=== PATIENT | female | born 1955 | race Caucasian/White ===

== ENCOUNTER → 2021-02-15 | Outpatient (CLI) | payer OTHER ==
[2021-02-15 12:04] LABS: BASOPHILS ABSOLUTE AUTO 0.07 K/mm3 (0.00-0.23); BASOPHILS PERCENT AUTO 1 % (0-2); EOSINOPHILS ABSOLUTE AUTO 0.07 K/mm3 (0.00-0.68); EOSINOPHILS PERCENT AUTO 1 % (0-6); Hematocrit 44.3 % (33.0-51.0); Hemoglobin 15.2 g/dL (11.5-16.0); IMMATURE GRAN ABSOLUTE AUTO 0.03 K/mm3 (0.00-0.10); IMMATURE GRAN PERCENT AUTO 1 % (0-1); LYMPHOCYTES ABSOLUTE AUTO 1.39 K/mm3 (0.84-5.20); LYMPHOCYTES PERCENT AUTO 22 % (21-46); MONOCYTES ABSOLUTE AUTO 0.45 K/mm3 (0.16-1.47); MONOCYTES PERCENT AUTO 7 % (4-13); Mean Corpuscular HGB 33.6 pg (26.0-34.0); Mean Corpuscular HGB Conc 34.3 g/dL (31.5-36.5); Mean Corpuscular Volume 98 fL (80-100); Mean Platelet Volume 10.8 fL (9.1-12.4); NEUTROPHILS ABSOLUTE AUTO 4.36 K/mm3 (1.96-9.15); NEUTROPHILS PERCENT AUTO 68 % (41-73); Platelet Count 404 K/mm3 (150-400); RDW Coefficient Variation 13.8 % (11.7-14.2); RDW Standard Deviation 49.8 fL (35.1-46.3); Red Blood Cell Count 4.52 M/mm3 (3.80-5.20); White Blood Cell Count 6.37 K/mm3 (4.00-11.30)
[2021-02-15 12:22] LABS: Alanine Aminotransfer (ALT/SGP 41 U/L (12-78); Albumin, Blood 4.2 g/dL (3.4-5.0); Albumin/Globulin Ratio 1.1 (0.8-1.8); Alk Phos 195 U/L (40-126); Anion Gap 8 mmol/L (6-16); Aspartate Aminotrans (AST/SGOT 27 U/L (12-37); Bilirubin, Total 0.6 mg/dL (0.1-1.0); Blood Urea Nitrogen 15 mg/dL (8-24); CO2, Blood 29 mmol/L (21-32); Calcium, Blood 10.2 mg/dL (8.5-10.1); Chloride, Blood 103 mmol/L (98-108); Creatinine, Blood 0.88 mg/dL (0.40-1.00); Globulin, Blood 3.9 g/dL (2.2-4.0); Glomerular Filtration Rate >60 (60-); Glucose, Blood 112 mg/dL (70-99); Potassium, Blood 4.4 mmol/L (3.5-5.5); Sodium, Blood 140 mmol/L (136-145); Total Protein, Blood 8.1 g/dL (6.4-8.2)
[2021-02-15 12:23] LABS: Troponin I <0.017 ng/mL (0.000-0.040)
== END | disposition home or self-care (01) ==
LOC: LAB 11:59 → LAB SHORT 11:59
PROVIDERS: Physician Assistant Medical
DX: R10.13 Epigastric pain (principal); R07.2 Precordial pain
CPT/HCPCS: 80053; 83690; 84484; 85025

== ENCOUNTER 2021-10-05 07:39 | Day surgery (SDC) | payer BC ==
[~2021-10-05] VITALS: Ht 167.6 cm; Wt 62.4 kg
== END 2021-10-05 10:22 | disposition home or self-care (01) ==
LOC: ORSCSDS 07:39
PROVIDERS: Internal Medicine Gastroenterology
PROC: 0DBN8ZX Excision of Sigmoid Colon, Via Natural or Artificial Opening Endoscopic, Diagnostic (ICD-10-PCS; principal; 2021-10-05 08:45)
PROC: 0DBL8ZX Excision of Transverse Colon, Via Natural or Artificial Opening Endoscopic, Diagnostic (ICD-10-PCS; principal; 2021-10-05 08:45)
PROC: 0DBP8ZX Excision of Rectum, Via Natural or Artificial Opening Endoscopic, Diagnostic (ICD-10-PCS; principal; 2021-10-05 08:45)
DX: R19.4 Change in bowel habit (principal); Z86.010 Personal history of colon polyps; D12.3 Benign neoplasm of transverse colon; K63.5 Polyp of colon; K62.1 Rectal polyp; F17.210 Nicotine dependence, cigarettes, uncomplicated
CPT/HCPCS: 88305; J2704; J7120

== ENCOUNTER 2023-05-30 08:33 | Day surgery (SDC) | payer BC ==
[2023-05-30] VITALS (16 sets, daily range): BP systolic 101–148; BP diastolic 55–97
[~2023-05-30] VITALS: Ht 167.6 cm; Wt 64.6 kg
[2023-05-30] MEDS ORDERED: Ropivacaine 0.5% HCl/Pf 123.125 MG,EPINEPHrine HCL 0.25 MG,Ketorolac Tromethamine 15 MG... INFIL SCH (08:40)
[2023-05-30] MEDS ORDERED: OxyCODONE HCL 10 MG TABCR PO SCH (08:40)
[2023-05-30] MEDS ORDERED: CeFAZolin Sodium 2,000 MG in NS 100 ML IV SCH ×2 (08:40→18:00)
[2023-05-30] MEDS ORDERED: Chlorhexidine Mouth Care 15 ML UDC MT SCH (08:40)
[2023-05-30] MEDS ORDERED: Acetaminophen 500 MG Tab PO SCH ×2 (08:40→16:00)
[2023-05-30] MEDS ORDERED: Vancomycin HCL 1,000 MG in NS 100 ML IV SCH ×2 (08:40→23:00)
[2023-05-30] MEDS ORDERED: Lactated Ringer's 1,000 ML IV SCH ×2 (08:40→11:40)
[2023-05-30] MEDS ORDERED: Tranexamic Acid 100 ML IV SCH (09:00)
--- NOTE | 2023-05-30 09:19 | NUR ---
Ambulatory in Day SurgeryPre-Op teaching done. Pt verbalizes understanding. History, Chart, Medications and Allergies reviewed before start of procedure.Patient confirms NPO status and agrees with scheduled surgery.
[2023-05-30] MEDS ORDERED: DiphenhydrAMINE HCL 25 MG Cap PO PRN (11:30)
[2023-05-30] MEDS ORDERED: Bisacodyl 10 MG Supp PR PRN (11:30)
[2023-05-30] MEDS ORDERED: Promethazine HCl 25 MG Tab PO PRN (11:35)
[2023-05-30] MEDS ORDERED: HYDROmorphone HCl/Pf 1MG SYR IV PRN (11:35)
[2023-05-30] MEDS ORDERED: OxyCODONE HCL 5 MG TAB PO PRN ×2 (11:35)
[2023-05-30] MEDS ORDERED: Magnesium Hydroxide Conc 10 ML UDC PO PRN (11:40)
[2023-05-30] MEDS ORDERED: Metoclopramide HCl 5MG / ML 2ML Vial IV PRN (11:40)
[2023-05-30] MEDS ORDERED: Ondansetron HCl 2 MG / ML 2ML Vial IV PRN (11:40)
[2023-05-30] MEDS ORDERED: Midazolam HCl 1MG / ML 2ML Vial ONE ×2 (12:19→12:49)
[2023-05-30] MEDS ORDERED: FentaNYL Citrate 50 MCG/ML 2 ML Injection ONE (12:19)
[2023-05-30] MEDS ORDERED: propofoL 40 ML IV ONE (12:32)
[2023-05-30] MEDS ORDERED: Phenylephrine HCl 100 MCG/ML-NS 10MLSYR (1MG/10ML) ONE (12:58)
[2023-05-30] MEDS ORDERED: Atropine Sulfate 0.4 MG/1 ML Vial ONE (13:19)
[2023-05-30] MEDS ORDERED: propofoL 20 ML IV ONE ×2 (13:53→13:58)
[2023-05-30] MEDS ORDERED: Vancomycin HCl 1000 MG ADDvantage ONE (14:20)
[2023-05-30] MEDS ORDERED: Ketorolac Tromethamine 30mg Vial ONE (15:42)
[2023-05-30] MEDS ORDERED: DOCU100 PO (16:03)
[2023-05-30] MEDS ORDERED: SULTRIDS PO (16:03)
[2023-05-30] MEDS ORDERED: OXYC5 PO (16:04)
[2023-05-30] MEDS ORDERED: Ketorolac Tromethamine 15mg Vial IV SCH (18:00)
--- NOTE | 2023-05-30 19:16 | NUR ---
SHIFT SUMMARY PT A&OX4, VSS/RA, AARON PO, VOIDING, AMB 1 PP FWW/GB - STAND TRANSFER TO BSC AND BACK TO BED, PAIN MANAGED, IVF/ABX PER EMAR, REPORT TO KIM FIGUEROA.
[2023-05-30] MEDS ORDERED: Docusate Sodium 100 MG Cap PO SCH (21:00)
[2023-05-31 05:12] VITALS: BP 122/66
--- NOTE | 2023-05-31 06:03 | NUR ---
SHIFT SUMMARY POD 1 R TKA PT ABLE TO REST DURING THE NIGHT. PAIN MANAGED PER EMAR. PT UP AND WALKING TO THE BATHROOM. VOIDING, TOLERATING PO INTAKE. DRESSING TO R KNEE C/D/I. PT HAVING NO MORE NAUSEA DURING THE SHIFT. VSS. PLAN FOR PHYSICAL THERAPY THEN D/C HOME. NO OTHER CONCERNS AT THIS TIME, CALL LIGHT WITHIN REACH
[2023-05-31 06:54] LABS: BASOPHILS ABSOLUTE AUTO 0.06 K/mm3 (0.00-0.23); BASOPHILS PERCENT AUTO 1 % (0-2); EOSINOPHILS ABSOLUTE AUTO 0.19 K/mm3 (0.00-0.68); EOSINOPHILS PERCENT AUTO 3 % (0-6); Hematocrit 34.9 % (33.0-51.0); Hemoglobin 11.1 g/dL (11.5-16.0); IMMATURE GRAN ABSOLUTE AUTO 0.02 K/mm3 (0.00-0.10); IMMATURE GRAN PERCENT AUTO 0 % (0-1); LYMPHOCYTES ABSOLUTE AUTO 1.08 K/mm3 (0.84-5.20); LYMPHOCYTES PERCENT AUTO 15 % (21-46); MONOCYTES ABSOLUTE AUTO 0.78 K/mm3 (0.16-1.47); MONOCYTES PERCENT AUTO 11 % (4-13); Mean Corpuscular HGB 31.9 pg (26.0-34.0); Mean Corpuscular HGB Conc 31.8 g/dL (31.5-36.5); Mean Corpuscular Volume 100 fL (80-100); Mean Platelet Volume 10.6 fL (9.1-12.4); NEUTROPHILS ABSOLUTE AUTO 5.24 K/mm3 (1.96-9.15); NEUTROPHILS PERCENT AUTO 71 % (41-73); Platelet Count 378 K/mm3 (150-400); RDW Coefficient Variation 14.8 % (11.7-14.2); RDW Standard Deviation 55.1 fL (35.1-46.3); Red Blood Cell Count 3.48 M/mm3 (3.80-5.20); White Blood Cell Count 7.37 K/mm3 (4.00-11.30)
[2023-05-31 07:03] VITALS: BP 129/48
[2023-05-31 07:19] LABS: Bun/Creatinine Ratio 13.8 (12.0-20.0); Calcium, Blood 9.2 mg/dL (8.5-10.1); Creatinine, Blood 0.8 mg/dL (0.40-1.00); Magnesium, Blood 1.8 mg/dL (1.6-2.4); Potassium, Blood 5.1 mmol/L (3.5-5.5)
[2023-05-31] MEDS ORDERED: Trimethoprim/Sulfamethoxazole DS Tab PO SCH (09:00)
[2023-05-31] MEDS ORDERED: Aspirin 81 MG Chew PO SCH (09:00)
--- NOTE | 2023-05-31 10:42 | NUR ---
DISCHARGE SUMMARY POD 1 R TKA, A/OX4, VSS, TOLERATING PO, PAIN WELL MANAGED, AMBULATING WITH MINIMAL ASSISTANCE, VOIDING INDEPENTLY, DRESSING CHANGED AT BEDSIDE BY ORTHO THIS AM, CLEANED WITH PEROXIDE AND STERILE GAUZE, APPLIED TWO ABD PADS ADN STEPHANY WRAP. IV REMOVED BY PIPE COVERER HELPER PRIOR TO DC. DISCUSSED DISCHARGE INSTRUCTIONS INCLUDING HOME CARE, MEDICATIONS, AND FOLLOW UP APPOINTMENTS. NO QUESTIONS AT THIS TIME, ESCORTED OUT VIA WC TO PRIVATE AUTO TO GO HOME.
== END 2023-05-31 10:50 | disposition home or self-care (01) ==
LOC: ORSCMMR 08:33 → ORD 10:45 → SURS 15:59 → ORSCMMR 05-31 10:50
PROVIDERS: Orthopaedic Surgery
PROC: 0SRC0J9 Replacement of Right Knee Joint with Synthetic Substitute, Cemented, Open Approach (ICD-10-PCS; principal; 2023-05-30 10:45)
DX: M17.11 Unilateral primary osteoarthritis, right knee (principal)
CPT/HCPCS: 36415; 73560-RT; 80048; 83735; 85025; 97110; 97116; 97162; A9270; C1713; C1776; J0171; J0461; J0690; J0735; J1885; J2250; J2371; J2405; J2704; J2795; J3010; J3370; J7120

== ENCOUNTER 2024-07-31 08:35 | Day surgery (SDC) | payer BC ==
[~2024-07-31] VITALS: Ht 167.6 cm; Wt 65.4 kg
[~2024-07-31 08:35] MED LIST: Balanced Salt Epinephrine Irrigation Solution 500 mL IR SCH; DOCU100 PO; Diazepam 5 MG Tab PO PRN; Diazepam 5 MG Tab PO SCH; Lidocaine HCl/Pf 1% 5 ML VIAL XX SCH; Moxifloxacin HCL 0.5 MG/0.1 ML 0.4MLSYR RIGHTEYE SCH; OXYC5 PO; Ondansetron 4 MG SoluTab MM PRN; PHENYLEPHRINE\\TROPICAMIDE\\TETRACAINE OPHTHALMIC DILATING SOLN RIGHTEYE PRN; Povidone-Iodine 450 DROP/30 ML Solution ONE; Povidone-Iodine 450 DROP/30 ML Solution RIGHTEYE SCH; SULTRIDS PO; Tetracaine HCl/Pf 0.5% Opth Soln 4 ml ONE; Triamcinolone Inj Susp 40 MG / ML 1ML Vial INJ SCH; Triamcinolone Inj Susp 40 MG / ML 1ML Vial ONE
[2024-07-31] MEDS ORDERED: Diazepam 10 MG Tab ONE (08:58)
--- NOTE | 2024-07-31 09:07 | NUR ---
07/31/24 0907 Juli Haq PT STATES ANXIETY LEVEL IS 3/10 IN PREOP BEFORE 10MG PO VALIUM. PT IS ON CONTINUOUS PULSE OX MONITORING CALL LIGHT IN HAND
--- NOTE | 2024-07-31 09:58 | NUR ---
07/31/24 0958 Jaqui Humphrey BP-126/86 P-62 SPO2-99% ON 10L BLOW BY O2
[2024-07-31 10:17] VITALS: BP 143/77
== END 2024-07-31 10:35 | disposition home or self-care (01) ==
LOC: ORSCSDS 08:35
PROVIDERS: Ophthalmology
PROC: 08RJ3JZ Replacement of Right Lens with Synthetic Substitute, Percutaneous Approach (ICD-10-PCS; principal; 2024-07-31 10:00)
DX: H25.813 Combined forms of age-related cataract, bilateral (principal); F17.210 Nicotine dependence, cigarettes, uncomplicated; Z86.0102 Personal history of hyperplastic colon polyps
CPT/HCPCS: A9270; J3301; V2632